=== PATIENT | female | born 1995 | race African-American/Black ===

== ENCOUNTER 2018-09-02 10:34 | Outpatient (CLI) | payer BC, SELFPAY ==
[2018-09-02 11:04] LABS: Abs Immature Grans 0.01 k/cumm (0.0-0.09); Absolute Basophil Count 0.02 k/cumm (0.0-0.2); Absolute Eosinophil Count 0.02 k/cumm (0.0-0.7); Absolute Lymphocyte Count 1.34 k/cumm (1.2-3.4); Absolute Monocyte Count 0.64 k/cumm (0.11-0.7); Absolute Neutrophil Count 5.41 k/cumm (1.2-6.7); Basophils % 0.3; Eosinophils % 0.3; HCT 38.9 % (36.0-46.0); HGB 13.5 g/dL (12.0-15.5); Immature Grans % 0.1; Mean Corp. HGB Concentration 34.7 g/dL (32.0-36.0); Mean Corpuscular Hemoglobin 30.8 pg (27.0-33.0); Mean Corpuscular Volume 88.6 fL (80-95); Mean Platelet Volume 11.4 fL (8.0-11.0); Monocytes % 8.6; Neutrophils % 72.7; Platelet Count 221 x1000/uL (130-400); RBC 4.39 m/cumm (4.00-5.20); RBC Distribution Width 12.3 % (11.7-14.6); White Blood Cell Count 7.44 k/cumm (4.4-10.8)
[2018-09-02 11:54] LABS: TSH (W/Ref FT4) 4.42 uIU/mL (0.358-3.74)
[2018-09-02 12:39] LABS: FREE T4 1.15 ng/dL (0.76-1.46)
[2018-09-03 10:49] LABS: HIV-1/2 Ag & Ab Screen Negative (NEGAT)
[2018-09-03 10:54] LABS: Varicella IgG Antibody Positive
[2018-09-03 11:07] LABS: Hepatitis B Surface Ag Negative (NEGAT)
[2018-09-03 11:13] LABS: Hepatitis C Ab w Rflx HCV PCR Negative (NEGAT)
[2018-09-03 11:14] LABS: Rubella IgG Ab (UVM) Positive
[2018-09-03 11:24] LABS: Syphilis Serology (RPR) Negative (Negative)
== END 2018-09-02 10:54 ==
PROVIDERS: PCP Registered Nurse; Visit Provider Obstetrics & Gynecology
DX: Z34.91 Encounter for supervision of normal pregnancy, unspecified, first trimester (principal); Z11.59 Encounter for screening for other viral diseases; Z01.84 Encounter for antibody response examination; Z11.4 Encounter for screening for human immunodeficiency virus [HIV]
CPT/HCPCS: 36415; 80055; 86787; 86803; 86850; 86900; 86901; 87340; 87389; 84439; 84443; 86592; 86762

== ENCOUNTER 2018-09-02 16:39 | Outpatient (REF) | payer BC, SELFPAY ==
[2018-09-02 17:19] LABS: *AMPHETAMINES SCREEN URINE Negative (Negative); *BARBITURATES SCREEN URINE Negative (Negative); *BENZODIAZEPINES SCREEN URINE Negative (Negative); Cannabinoids THC Negative (Negative); Cocaine Screen,Urine Negative (Negative); METHADONE URINE SCREEN Negative (Negative); OPIATES URINE SCREEN Negative (Negative)
[2018-09-02 17:20] LABS: Tricyclic Antidepressants Negative (Negative)
[2018-09-06 18:33] LABS: Buprenorphine Negative; Norbuprenorphine Negative
== END 2018-09-02 16:59 ==
LOC: LBN 16:39
PROVIDERS: PCP Registered Nurse; Visit Provider Obstetrics & Gynecology
DX: Z34.91 Encounter for supervision of normal pregnancy, unspecified, first trimester (principal)
CPT/HCPCS: 80307; 87086

== ENCOUNTER 2018-09-18 13:26 | Outpatient (REF) | payer BC, SELFPAY ==
[2018-09-19 13:19] LABS: Chlamydia Result Negative; GC Result Negative; Specimen Description URINE
[2018-09-21 10:01] LABS: Buprenorphine Negative; Norbuprenorphine Negative
== END 2018-09-18 13:46 ==
LOC: LBN 13:26
PROVIDERS: Obstetrics & Gynecology; PCP Registered Nurse; Visit Provider Nurse Practitioner
DX: Z34.91 Encounter for supervision of normal pregnancy, unspecified, first trimester (principal); Z11.3 Encounter for screening for infections with a predominantly sexual mode of transmission
CPT/HCPCS: 80307; 87491; 87591; 87086

== ENCOUNTER 2018-10-17 11:21 | Outpatient (CLI) | payer BC, SELFPAY ==
[2018-10-17 12:00] LABS: Kit/Specimen SENT
[2018-10-25 14:26] LABS: Specimen WB Whole Blood
[2018-10-30 23:42] LABS: Result Summary NEGATIVE; Specimen WB Whole Blood
== END 2018-10-17 11:41 ==
PROVIDERS: PCP Registered Nurse; Visit Provider Advanced Practice Midwife
DX: Z34.91 Encounter for supervision of normal pregnancy, unspecified, first trimester (principal); Z36.89 Encounter for other specified antenatal screening
CPT/HCPCS: 36415; 81329; 81220

== ENCOUNTER 2018-11-21 00:51 | Outpatient (CLI) | payer BC, SELFPAY ==
--- NOTE | 2018-11-21 14:15 | DI.US_ITS ---
SYMPTOMS/DIAGNOSIS: 18-WEEK ANATOMY SURVEY, Z34.9 OB ULTRASOUND: Many abnormalities cannot be diagnosed. A normal exam does not exclude a congenital anomaly. Radiology No. [id number] LMP: Exam Date: 11/21/18 [facility] wks days on EDC ([facility]) 04/23/19 Confirmed: HISTORY: PREDICTED GESTATIONAL AGE NUMBER 18+1 weeks with a range of 17+1 weeks to 19+1 weeks. 1 Determined by___1STUS___LMP_X__HISTORY PLACENTA PRESENTATION Grade I Cephalic___ Anterior___Posterior_X__ Breech____ Right Left Transverse(head right___ Fundal___Low-lying___Previa___ Transverse(head left___ Varying___X___ BIOMETRY AMNIOTIC FLUID BPD: 41 mm 18+3 weeks Normal HC: 154 mm 18+3 weeks AC: 126 mm 18+1 weeks FL: 27 mm 18+1 weeks AMNIOTIC FLUID INDEX >26 WK CRL: mm weeks Cisterna Magna: 3 mm CI: 83.8 RUQ: LUQ Cerebellum: 1.8 cm EFW: 227 grams Percentile: 46th RLQ: LLQ Total: cms Composite AGE= 18+2 wks EDC by US: 04/22/19 BIOPHYSICAL PROFILE ANATOMY IDENTIFIED SCORE 0/2 Heart: 4-Chamber_X__Rate:BPM 155 LVOT: X RVOT:___X Amniotic Fluid(>2cms)____ Stomach:__X Kidneys:___X____ Respirations (>30 secs) Bladder:___X Post. Fossa:___X Body Flex/Extension 3-vessel cord:__X Ventricles:___X Cord insertion:__X___ Lips:_X___ Extremity Flex/Extension Spinal morphology: Nose:__X__ Total Score= Palate:___X____ NS=not seen ADDENDUM FROM DR NOWAK ON 11/22/18: Images of the stomach show echogenic material within the lumen of the stomach. This may represent swallowed debris which may give the appearance of a pseudomass. A follow up OB ultrasound for evaluation of the stomach is recommended in 2 weeks for re-evaluation. The results were called to Isabel Humphreys on 11/22/18 at 11:15 am.
== END 2018-11-21 01:11 ==
PROVIDERS: PCP Registered Nurse; Visit Provider Advanced Practice Midwife
DX: Z34.92 Encounter for supervision of normal pregnancy, unspecified, second trimester (principal); Z36.2 Encounter for other antenatal screening follow-up
CPT/HCPCS: 76805

== ENCOUNTER 2019-01-31 02:13 | Outpatient (CLI) | payer BC, SELFPAY ==
--- NOTE | 2019-01-31 07:07 | DI.US_ITS ---
Predicted Gestational Age: Indication/History:GRAVES DISEASE, CHECK FOR GOITER 28.2 Wks Range: 27.2 to 29.2 Prior US done on: Determined by: X First US LMP History EDC by prior US: 04/23/19 For multiple gestations: Baby PLACENTA: Grade: 1 Location: Anterior Posterior X PRESENTATION: RT LT LOW LYING PREVIA Cephalic Trans (Head RT LT ) Varied Breech X MARVIN BIOMETRY: Anatomy Identified: BPD: mm wks 4 chamber Heart X Heart Rate 152 BPM HC: mm wks LVOT Post Fossa AC: mm wks RVOT Ventricles FL: mm wks Stomach X Nose Bladder Lips Cisterna Magna: mm CI: Kidneys Palate Cerebellum: mm 3 vessel cord Spine EFW: grms % Cord Insertion NS= not seen Composite Age (US) wks Many abnormalities cannot be diagnosed. A normal exam does not exclude congenital abnormality. EDC by US Amniotic Fluid Index: Normal COMMENTS: RUQ: LUQ: 1) no echogenic foci seen in stomach on RLQ: LLQ: today's study. Total: cm 2) neck/thyroid area seen well on today's study. No evidence of gross Biophysical Profile: Score 0/2 abnormality in anterior neck. JAQUI (>2cm) Respirations (>30 sec) Body flexion/extension Extremity flexion/extension TOTAL SCORE Comparison is made with 11/21/18. The fetus is in breech position. The placenta is posterior. No echogenic material is seen in the stomach on today's exam. The amniotic fluid appears normal. IMPRESSION: Normal appearing stomach.
[2019-01-31 08:23] LABS: Glucose,1 Hr (Glucola) 158 mg/dL (80-140)
[2019-01-31 08:36] LABS: HCT 35.9 % (36.0-46.0); Mean Corp. HGB Concentration 33.4 g/dL (32.0-36.0); Mean Corpuscular Hemoglobin 30.7 pg (27.0-33.0); Mean Corpuscular Volume 91.8 fL (80-95); Mean Platelet Volume 11.9 fL (8.0-11.0); Platelet Count 198 x1000/uL (130-400); RBC 3.91 m/cumm (4.00-5.20); RBC Distribution Width 12.8 % (11.7-14.6); White Blood Cell Count 6.44 k/cumm (4.4-10.8)
[2019-01-31 14:43] LABS: FREE T4 1.13 ng/dL (0.76-1.46)
[2019-02-04 22:18] LABS: Thyroid Stimulating Immunoglob <1.0 TSI index (<=1.3)
== END 2019-01-31 02:33 ==
PROVIDERS: Advanced Practice Midwife; PCP Registered Nurse; Visit Provider Advanced Practice Midwife
DX: Z34.92 Encounter for supervision of normal pregnancy, unspecified, second trimester (principal); Z36.89 Encounter for other specified antenatal screening; O99.282 Endocrine, nutritional and metabolic diseases complicating pregnancy, second trimester; E05.00 Thyrotoxicosis with diffuse goiter without thyrotoxic crisis or storm
CPT/HCPCS: 36415; 76815; 82950; 85027; 84439; 84443; 84445

== ENCOUNTER 2019-02-13 11:40 | Outpatient (CLI) | payer BC, SELFPAY ==
[2019-02-13 13:02] LABS: FREE T4 1.54 ng/dL (0.76-1.46)
== END 2019-02-13 12:00 ==
PROVIDERS: PCP Registered Nurse; Visit Provider Internal Medicine Endocrinology, Diabetes & Metabolism
DX: E89.0 Postprocedural hypothyroidism (principal)
CPT/HCPCS: 36415; 84439; 84443

== ENCOUNTER 2019-02-14 15:46 | Outpatient (CLI) | payer BC, SELFPAY ==
--- NOTE | 2019-02-13 10:30 | DIABASSESS_ITS ---
DESCRIPTION/ASSESSMENT: Lou Herndon presents to rule out gestational diabetes. She had an elevated screen ~150mg/dl and declines the 3 hour test. She is willing to test her blood sugars to see if she has elevated blood sugars. She already has her glucometer however she did not bring it today. She reports having a period where she was eating processed, less healthy food during a period of illness. She has since switched processed for for less processed, natural food choices. She has oelet with vegetables, toast with peanut butter; chicken cooked in olive oil with tortilla, veggies; lean turkey burger for supper with cottage cheese and vegetables. She snacks between meals on apple with peanut butter, cheese and crackers. She drinks water with lemon. She does have dark chocolate almonds once a day for a sweet. She has also started walking for physical activity. INTERVENTION: Reviewed food guide for gestational diabetes and guidelines and she voices understanding. She agrees to test her blood sugar per protocol for the next few days and report back for assessment by CNMs. She will seek help for using the glucometer from family members with diabetes. PLAN: She will email her blood sugar results 02/14/19 Lou sent the following and seeks advice for how long she needs to test her blood sugar. Gestational Diabetes Blood Sugar Log for Lou Herndon Date fasting 1hr B 1 hr L 1 hr S 02/13 78 98 97 107 Lou is looking forward to hearing from her provider for further instruction. At this time this recorder does not see signs of gestational diabetes. [place] RDN, CDE
== END 2019-02-14 16:06 ==
PROVIDERS: PCP Registered Nurse; Visit Provider Dietitian, Registered
DX: O99.283 Endocrine, nutritional and metabolic diseases complicating pregnancy, third trimester (principal); Z71.3 Dietary counseling and surveillance
CPT/HCPCS: 97802

== ENCOUNTER 2019-02-27 00:34 | Outpatient (CLI) | payer BC, SELFPAY ==
--- NOTE | 2019-02-27 07:14 | DI.US_ITS ---
Predicted Gestational Age: Indication/History:GRAVES DISEASE,E05.00,CHECK GROWTH 32.1 Wks Range: 31.1 to 33.3 Prior US done on: Determined by: First US LMP History X EDC by prior US: For multiple gestations: Baby PLACENTA: Grade: I-II Location: Anterior Posterior X PRESENTATION: RT LT LOW LYING PREVIA Cephalic X Trans (Head RT LT ) Varied Breech BIOMETRY: Anatomy Identified: BPD: 82 mm 32.6 wks 4 chamber Heart Heart Rate 149 BPM HC: 296 mm 32.5 wks LVOT Post Fossa AC: 278 mm 31.6 wks RVOT Ventricles FL: 63 mm 32.3 wks Stomach Nose Bladder Lips Cisterna Magna: mm CI: 86 Kidneys Palate Cerebellum: mm 3 vessel cord Spine EFW: 1920 grms 40th % Cord Insertion NS= not seen Composite Age (US) 32.3 wks Many abnormalities cannot be diagnosed. A normal exam does not exclude congenital abnormality. EDC by US 04/21/19 Amniotic Fluid Index: Normal COMMENTS: RUQ: 3.3 LUQ:4.6 RLQ: 3.7 LLQ: 0.6 Total: 12.2 cm Biophysical Profile: Score 0/2 JAQUI (>2cm) Respirations (>30 sec) Body flexion/extension Extremity flexion/extension TOTAL SCORE Please see the OB ultrasound worksheet for specific details.
== END 2019-02-27 00:54 ==
PROVIDERS: PCP Registered Nurse; Visit Provider Advanced Practice Midwife
DX: E05.00 Thyrotoxicosis with diffuse goiter without thyrotoxic crisis or storm (principal); Z34.93 Encounter for supervision of normal pregnancy, unspecified, third trimester
CPT/HCPCS: 76816

== ENCOUNTER 2019-03-13 10:29 | Outpatient (CLI) | payer BC, SELFPAY ==
[2019-03-13 12:04] LABS: TSH (W/Ref FT4) 0.77 uIU/mL (0.358-3.74)
== END 2019-03-13 10:49 ==
PROVIDERS: Advanced Practice Midwife; PCP Registered Nurse; Visit Provider Internal Medicine Endocrinology, Diabetes & Metabolism
DX: E89.0 Postprocedural hypothyroidism (principal)
CPT/HCPCS: 36415; 84443

== ENCOUNTER 2019-03-31 11:47 | Outpatient (REF) | payer BC, SELFPAY ==
[2019-03-31 14:42] LABS: *AMPHETAMINES SCREEN URINE Negative (Negative); *BARBITURATES SCREEN URINE Negative (Negative); *BENZODIAZEPINES SCREEN URINE Negative (Negative); Cannabinoids THC Negative (Negative); Cocaine Screen,Urine Negative (Negative); METHADONE URINE SCREEN Negative (Negative); OPIATES URINE SCREEN Negative (Negative)
[2019-03-31 14:45] LABS: Tricyclic Antidepressants Negative (Negative)
[2019-04-04 11:47] LABS: Buprenorphine Negative; Norbuprenorphine Negative
== END 2019-03-31 12:07 ==
LOC: LBN 11:47
PROVIDERS: PCP Registered Nurse; Visit Provider Advanced Practice Midwife
DX: Z34.93 Encounter for supervision of normal pregnancy, unspecified, third trimester (principal); Z36.85 Encounter for antenatal screening for Streptococcus B
CPT/HCPCS: 80307; 87081

== ENCOUNTER 2019-04-01 00:42 | Outpatient (CLI) | payer BC, SELFPAY ==
--- NOTE | 2019-04-01 06:38 | DI.US_ITS ---
SYMPTOM/DIAGNOSIS: INTERVAL GROWTH AND CHECK NECK FLEXION E05.00, Z34.90 OB ULTRASOUND: Comparison is made with 27 Feb 2019. The fetus is in cephalic position. The placenta is posterior. The biometric measurements correspond to 36 weeks 5 days, consistent with previous dating. The amniotic fluid index is normal at 14.2. There was again limited visualization of the anterior aspect of the neck. The spine is anterior. The neck appears normally flexed. Predicted Gestational Age: Indication/History: 36 +1 Wks Range: 35 +6 to 37 +6 Prior US done on: Determined by: First US EDC by prior US: 04/23/19 For multiple gestations: Baby PLACENTA: Grade: II Location: Posterior PRESENTATION: RT LT LOW LYING PREVIA Cephalic XX Trans (Head RT LT ) Varied Breech BIOMETRY: Anatomy Identified: BPD: 90 mm 36 +4 wks 4 chamber Heart Heart Rate 135 BPM HC: 326 mm 37 +0 wks LVOT Post Fossa AC: 324 mm 36 +2 wks RVOT Ventricles FL: 72 mm 36 +6 wks Stomach Nose Bladder Lips Cisterna Magna: mm CI: 83 Kidneys Palate Cerebellum: mm 3 vessel cord Spine EFW: 2972 grms 47 % Cord Insertion NS= not seen Composite Age (US) 36 +5 wks Many abnormalities cannot be diagnosed. A normal exam does not exclude congenital abnormality. EDC by US 04/24/19 Amniotic Fluid Index: Normal COMMENTS: RUQ: 4.99 LUQ: 6.03 RLQ: 3.13 LLQ: --- Total: 14.2 cm Biophysical Profile: Score 0/2 JAQUI (>2cm) Respirations (>30 sec) Body flexion/extension Extremity flexion/extension TOTAL SCORE
== END 2019-04-01 01:02 ==
PROVIDERS: PCP Registered Nurse; Visit Provider Advanced Practice Midwife
DX: E05.00 Thyrotoxicosis with diffuse goiter without thyrotoxic crisis or storm (principal); Z34.93 Encounter for supervision of normal pregnancy, unspecified, third trimester; Z36.2 Encounter for other antenatal screening follow-up
CPT/HCPCS: 76805

== ENCOUNTER 2019-04-18 16:52 | Observation (INO) | payer BC, SELFPAY | END 2019-04-18 18:06 | disposition home or self-care (01) | PROVIDERS: Admitting Provider Advanced Practice Midwife; PCP Registered Nurse; Visit Provider Advanced Practice Midwife | DX: O47.1 False labor at or after 37 completed weeks of gestation (principal); Z3A.39 39 weeks gestation of pregnancy | CPT/HCPCS: 59025; G0378 ==

== ENCOUNTER 2019-04-19 18:31 | Observation (INO) | payer BC, SELFPAY ==
[2019-04-20] MEDS: Acetaminophen 500 MG TAB 1000 MG PO (00:35)
== END 2019-04-20 14:40 | disposition home or self-care (01) ==
PROVIDERS: Admitting Provider Advanced Practice Midwife; PCP Registered Nurse; Visit Provider Advanced Practice Midwife
DX: O47.1 False labor at or after 37 completed weeks of gestation (principal); Z3A.39 39 weeks gestation of pregnancy
CPT/HCPCS: 59025 ×2; 76815; G0378